=== PATIENT | female | born 1965 | race African-American/Black ===

== ENCOUNTER 2017-07-20 00:10 | Emergency (ER) | payer OTHER ==
[2017-07-20 01:03] LABS: KETONE, URINE AUTO RFX NEGATIVE (NEGATIVE); LEUKOCYTE ESTERASE UR AUTO RFX 2+ (NEGATIVE); MUCUS, URINE RFX SMALL (NEGATIVE); NITRITE, URINE AUTO RFX NEGATIVE (NEGATIVE); RBC, URINE AUTO RFX TNTC /HPF (0-3); SPECIFIC GRAVITY UR AUTO RFX 1.005 (1.002-1.035); SQUAM EPITHELIAL CELL UR AURFX 0 /HPF (0-6); WBC, URINE AUTO RFX TNTC /HPF (0-3)
[2017-07-20] MEDS: CIPROFLOXACIN 500 MG TAB PO (02:36)
== END 2017-07-20 03:02 | disposition home or self-care (01) ==
LOC: M ED 00:10
DX: N39.0 Urinary tract infection, site not specified (principal)
CPT/HCPCS: 81001

== ENCOUNTER → 2017-08-22 | Outpatient (CLI) | payer OTHER ==
[2017-08-22 11:31] LABS: FREE THYROXINE INDEX 3.3 % (1.3-4.8); T UPTAKE 30 % (30-39); THYROID STIMULATING HORMONE 0.941 uIU/ML (0.358-3.740); THYROXINE (T4) 11.1 UG/DL (4.5-12.0)
== END ==
LOC: M LAB 10:07
DX: Z12.11 Encounter for screening for malignant neoplasm of colon (principal)
CPT/HCPCS: 84443

== ENCOUNTER → 2017-08-24 | Outpatient (CLI) | payer OTHER | LOC: M RAD 06:05 | DX: E04.2 Nontoxic multinodular goiter (principal) ==

== ENCOUNTER → 2018-02-08 | Outpatient (CLI) | payer OTHER | LOC: M RAD 13:09 | DX: E04.2 Nontoxic multinodular goiter (principal) | CPT/HCPCS: 76536 ==

== ENCOUNTER → 2018-05-14 | Outpatient (CLI) | payer OTHER | LOC: M RAD 09:13 | DX: Z12.31 Encounter for screening mammogram for malignant neoplasm of breast (principal) | CPT/HCPCS: 77067 ==

== ENCOUNTER → 2018-06-08 | Outpatient (CLI) | payer OTHER ==
[~2018-06-08] MED LIST: CIPR-249 PO
--- NOTE | 2018-06-08 11:26 | REP ---
Chest two views HISTORY: Dyspnea Comparison: None The lungs are clear. The heart is normal in size. The pulmonary vasculature is normal in appearance. The bony structure is intact. IMPRESSION: No acute disease. Electronically Signed by Josep Hager MD 06/08/2018 11:18 A
== END ==
LOC: M SMT 09:53
PROVIDERS: ATTEND Physician Assistant
DX: R06.00 Dyspnea, unspecified (principal)

== ENCOUNTER → 2018-07-04 | Outpatient (CLI) | payer OTHER ==
[2018-07-04 13:39] LABS: BASO # 0.1 10^3/uL (0.0-0.2); BASO % 0.8 % (0.0-1.0); EOS # 0.4 10^3/uL (0.0-0.50); EOS % 6.8 % (0.0-3.0); HEMATOCRIT 40.9 % (36.0-47.0); HEMOGLOBIN 13.4 g/dl (12.0-15.5); LYMPH # 3.2 10^3/uL (1.5-4.5); LYMPH % 53.5 % (24.0-44.0); MEAN CORPUSCULAR HEMOGLOBIN 29.2 pg (27.0-33.0); MEAN CORPUSCULAR HGB CONC 32.8 g/dl (32.0-36.5); MEAN CORPUSCULAR VOLUME 89.1 fl (80.0-96.0); MONO # 0.5 10^3/uL (0.0-0.8); MONO % 8.6 % (0.0-5.0); NEUTROPHILS # 1.8 10^3/uL (1.8-7.7); NEUTROPHILS % 30.1 % (36.0-66.0); PLATELET COUNT, AUTOMATED 265 10^3/uL (150-450); RED BLOOD COUNT 4.59 10^6/uL (4.00-5.40)
[2018-07-08 08:49] LABS: D001-IgE D pteronyssinus 1.19 kU/L (Class II); E001-IgE Cat Epith/Dander < 0.10 kU/L (Class 0); E005-IgE Dog Dander < 0.10 kU/L (Class 0); M001-IgE Penicillium chrysogen < 0.10 kU/L (Class 0); M002 IgE Cladosporium herbaru < 0.10 kU/L (Class 0); M006-IgE Alternaria alternata < 0.10 kU/L (Class 0); T001-IgE Maple/Box Elder 0.65 kU/L (Class II); T003-IgE Common Silver Birch 0.24 kU/L (Class 0/I); T006-IgE Cedar, Mountain 0.47 kU/L (Class I); T007-IgE Oak, White 0.36 kU/L (Class I); T008-IgE Elm, American 1.11 kU/L (Class II); T015-IgE Ash, White 0.42 kU/L (Class I); T070-IgE White Mulberry 0.23 kU/L (Class 0/I); W001-IgE Ragweed, Short 0.46 kU/L (Class I); W009-IgE Plantain, English 0.32 kU/L (Class I); W014-IgE Pigweed, Rough 0.46 kU/L (Class I); W018-IgE Sheep Sorrel 0.35 kU/L (Class I)
== END ==
LOC: M SMT 08:59
PROVIDERS: ATTEND Physician Assistant
DX: R06.00 Dyspnea, unspecified (principal)

== ENCOUNTER → 2018-07-11 | Outpatient (CLI) | payer OTHER ==
--- NOTE | 2018-07-12 07:34 | REP ---
Clinical: Abnormal lung findings. Technique: Axial noncontrast images from the thoracic inlet to the upper abdomen with coronal and sagittal re-formations. Correlation: Chest x-ray dated 06/08/2018. Findings: The bilateral lung belcher are well-aerated, essentially symmetric and clear. Evidence for mild bronchiectasis noted. No consolidation, significant nodule, or mass lesion. No pleural effusion. No pneumothorax. No obvious adenopathy. Mediastinum demonstrates normal thoracic aorta and heart/pericardium. A small hiatal hernia suggested at the gastroesophageal junction. Surrounding musculoskeletal structures are intact. Limited upper abdomen demonstrates normal bilateral adrenal glands. Impression: Mild bronchiectasis. Electronically Signed by Ángel Grewal MD 07/12/2018 07:25 A
== END ==
LOC: M RAD 08:47
PROVIDERS: ATTEND Physician Assistant
DX: J47.9 Bronchiectasis, uncomplicated (principal); R91.8 Other nonspecific abnormal finding of lung field

== ENCOUNTER → 2018-09-17 | Outpatient (CLI) | payer OTHER ==
--- NOTE | 2018-09-17 10:30 | REP ---
THYROID ULTRASOUND: Real-time sonographic evaluation of the thyroid is performed and compared to prior studies 02/08/2018 and 08/24/2017. Right lobe measures 3.6 x 1.1 x 1.4 cm and left low 4.4 x 2.1 x 2.5 cm. In the right lobe, there are three subcentimeter complex cystic and solid nodule, which appear essentially stable. The largest has a maximum diameter of 7 mm. In the left lobe, there is a large heterogeneous solid area which measures about 3.4 x 1.8 x 2.1 cm with a nodular area along its anterior aspect 1.4 x 1.4 x 1.5. Complex solid nodule medially measures 1.2 x 0.9 x 0.8 cm. Complex cystic and solid nodule superiorly measures 7 x 5 x 6 mm. All of these findings appear essentially stable. IMPRESSION: Multiple complex nodules bilaterally more so on the left than on the right. There is not a definite change compared to the prior studies of 02/08/2018 and 08/24/2017. Electronically Signed by Jt Gutierrez MD 09/17/2018 12:46 P
== END ==
LOC: M RAD 08:54
PROVIDERS: ATTEND Specialist
DX: E04.9 Nontoxic goiter, unspecified (principal)